=== PATIENT | male | born 1980 | race Caucasian/White ===

== ENCOUNTER 2021-06-11 12:47 | Emergency (ER) | payer BC ==
[2021-06-11] MEDS ORDERED: Lidocaine 1% PF 2 ML SDV INJECT ONE (14:33)
[2021-06-11] MEDS ORDERED: Diphtheria,Pertussis(Acell),Tetanus Vaccine 0.5 ML Syringe IM ONE (14:34)
[2021-06-11] MEDS ORDERED: Bacitracin Oint 1 GM U/D Packet TOP ONE (15:02)
== END 2021-06-11 15:19 | disposition home or self-care (01) ==
LOC: JP.ED 12:47
DX: S61.210A Laceration without foreign body of right index finger without damage to nail, initial encounter (principal); Z23 Encounter for immunization; Z90.49 Acquired absence of other specified parts of digestive tract; W23.1XXA Caught, crushed, jammed, or pinched between stationary objects, initial encounter
CPT/HCPCS: 12001; 90471; 90715; 99282; 99282-25